=== PATIENT | male | born 1970 | race Caucasian/White ===

== ENCOUNTER → 2016-09-05 | Outpatient (REF) | payer OTHER ==
[~2016-09-05] MED LIST: FLEXERIL PO; IBUP600T OR; NOVOLOG100 MG/ML SC; PAIN325T OR
[2016-09-05 13:08] LABS: ANION GAP 7 MEQ/L (8-16); BLOOD UREA NITROGEN 21 MG/DL (7-18); CALCIUM LEVEL 8.9 MG/DL (8.5-10.1); CARBON DIOXIDE LEVEL 28 MEQ/L (21-32); CHLORIDE LEVEL 107 MEQ/L (98-107); CREATININE FOR GFR 0.84 MG/DL (0.70-1.30); GLOMERULAR FILTRATION RATE > 60.0 (>60); GLUCOSE, FASTING 72 MG/DL (70-105); POTASSIUM SERUM 3.9 MEQ/L (3.5-5.1); SODIUM LEVEL 142 MEQ/L (136-145)
[2016-09-05 13:14] LABS: MEAN CORPUSCULAR HEMOGLOBIN 32.4 pg (27.0-33.0); MEAN CORPUSCULAR VOLUME 86.8 fl (80.0-96.0); RED CELL DISTRIBUTION WIDTH 12.5 % (11.5-14.5); WHITE BLOOD COUNT 8.6 K/mm3 (4.0-10.0)
[2016-09-05 13:22] LABS: MEAN CORPUSCULAR HGB CONC 37.1 g/dl (32.0-36.5)
== END ==
LOC: M LABDRAW1 12:12
PROVIDERS: ATTEND Nurse Practitioner
DX: Z01.812 Encounter for preprocedural laboratory examination (principal); I49.3 Ventricular premature depolarization

== ENCOUNTER → 2017-10-16 | Outpatient (REF) | payer OTHER ==
[2017-10-16 16:30] LABS: PROSTATIC SPECIFIC AG MONITOR 0.78 NG/ML (< 4.0)
[2017-10-16 17:01] LABS: TESTOSTERONE 408 NG/DL (241-827)
== END ==
LOC: M LABDRAW1 12:03
DX: F52.21 Male erectile disorder (principal)

== ENCOUNTER → 2018-01-02 | Outpatient (REF) | payer OTHER ==
[2018-01-02 12:43] LABS: BASO # 0.1 10^3/uL (0.0-0.2); BASO % 0.9 % (0.0-1.0); EOS # 0.2 10^3/uL (0.0-0.50); EOS % 2.7 % (0.0-3.0); HEMATOCRIT 39.7 % (42.0-52.0); HEMOGLOBIN 14.6 g/dl (13.5-17.5); IMMATURE GRANULOCYTE % 0.2 % (0-3.0); LYMPH # 1.5 10^3/uL (1.5-4.5); LYMPH % 22.8 % (24.0-44.0); MEAN CORPUSCULAR HEMOGLOBIN 31.5 pg (27.0-33.0); MEAN CORPUSCULAR VOLUME 85.6 fl (80.0-96.0); MONO # 0.4 10^3/uL (0.0-0.8); MONO % 6.9 % (0.0-5.0); NEUTROPHILS # 4.2 10^3/uL (1.8-7.7); NEUTROPHILS % 66.5 % (36.0-66.0); PLATELET COUNT, AUTOMATED 263 10^3/uL (150-450); RED BLOOD COUNT 4.64 10^6/uL (4.30-6.10); RED CELL DISTRIBUTION WIDTH 11.7 % (11.5-14.5); WHITE BLOOD COUNT 6.4 10^3/uL (4.0-10.0)
[2018-01-02 12:51] LABS: MEAN CORPUSCULAR HGB CONC 36.4 g/dl (32.0-36.5)
[2018-01-02 13:02] LABS: C REACTIVE PROTEIN QUANTITATIV < 0.30 MG/DL (0.00-0.30)
[2018-01-02 13:02] LABS: RHEUMATOID FACTOR QUANT < 10.0 IU/ML (<15.0)
[2018-01-02 13:33] LABS: ERYTHROCYTE SEDIMENTATION RATE 4 mm/hr (0-15)
[2018-01-04 00:09] LABS: ANTINUCLEAR ANTIBODIES DIRECT Negative (Negative); Lyme Disease IgG/IgM Antibodie <0.91 ISR (0.00-0.90); Lyme Disease IgM Ab Quantitati <0.80 index (0.00-0.79)
== END ==
LOC: M LABDRAW1 12:07
DX: M25.561 Pain in right knee (principal)

== ENCOUNTER → 2018-05-24 | Outpatient (CLI) | payer OTHER ==
[2018-05-24 18:07] LABS: BLOOD UREA NITROGEN 23 MG/DL (7-18); CALCIUM LEVEL 8.5 MG/DL (8.5-10.1); CARBON DIOXIDE LEVEL 25 MEQ/L (21-32); CHLORIDE LEVEL 107 MEQ/L (98-107); CREATININE FOR GFR 1.01 MG/DL (0.70-1.30); GLOMERULAR FILTRATION RATE > 60.0 (>56); GLUCOSE, FASTING 202 MG/DL (70-100); POTASSIUM SERUM 4.3 MEQ/L (3.5-5.1); SODIUM LEVEL 139 MEQ/L (136-145)
== END ==
LOC: M LAB 16:53
PROVIDERS: ATTEND Orthopaedic Surgery
DX: Z01.818 Encounter for other preprocedural examination (principal); I10 Essential (primary) hypertension; Z79.899 Other long term (current) drug therapy

== ENCOUNTER → 2020-03-05 | Outpatient (REF) | payer OTHER ==
[2020-03-05 18:39] LABS: MALB URINE SIEMENS 17.7 MG/L; MAU/CREAT RATIO 16.3 MCG/MG (0.0-30.0)
== END ==
LOC: M LAB REF 17:00
PROVIDERS: ATTEND Internal Medicine Endocrinology, Diabetes & Metabolism
DX: E10.65 Type 1 diabetes mellitus with hyperglycemia (principal)

== ENCOUNTER → 2020-12-29 | Outpatient (REF) | payer OTHER ==
[2020-12-29 19:09] LABS: MALB URINE SIEMENS 37.8 MG/L; MAU/CREAT RATIO 28.6 MCG/MG (0.0-30.0)
== END ==
LOC: M LAB REF 16:52
PROVIDERS: ATTEND Internal Medicine Endocrinology, Diabetes & Metabolism
DX: E10.65 Type 1 diabetes mellitus with hyperglycemia (principal)

== ENCOUNTER 2023-03-06 08:13 | Emergency (ER) | payer OTHER ==
[~2023-03-06] VITALS: Ht 182.9 cm; Wt 106.6 kg
[2023-03-06] MEDS ORDERED: INSUHUMDS (09:01)
[2023-03-06] MEDS ORDERED: CARV25TA (09:01)
[2023-03-06 09:21] LABS: BASO % 0.3 % (0.0-1.0); EOS # 0.1 10^3/uL (0.0-0.5); HEMATOCRIT 38.4 % (42.0-52.0); HEMOGLOBIN 14.4 g/dl (13.5-17.5); LYMPH % 10.5 % (24.0-44.0); MEAN CORPUSCULAR HEMOGLOBIN 31.9 pg (27.0-33.0); MONO # 0.5 10^3/uL (0.0-0.8); MONO % 5.5 % (2.0-8.0); NEUTROPHILS # 7.9 10^3/uL (1.5-8.5); NEUTROPHILS % 82.4 % (36.0-66.0); PLATELET COUNT, AUTOMATED 211 10^3/uL (150-450); RED BLOOD COUNT 4.52 10^6/uL (4.30-6.10); WHITE BLOOD COUNT 9.5 10^3/uL (4.0-10.0)
[2023-03-06 09:22] LABS: INR 0.98; PARTIAL THROMBOPLASTIN TIME 23.5 SECONDS (24.8-34.2); PROTHROMBIN TIME 12.7 SECONDS (12.5-14.5)
[2023-03-06 09:23] LABS: MEAN CORPUSCULAR HGB CONC 37.5 g/dl (32.0-36.5)
[2023-03-06 09:36] LABS: RSV AMPLIFICATION NEGATIVE (NEGATIVE)
[2023-03-06] MEDS ORDERED: METOCLOPRAMIDE INJ 10MG/2ML VIAL IV ONE (09:50)
[2023-03-06] MEDS ORDERED: KETOROLAC 30 MG/ML 1ML VIAL IV ONE (09:50)
[2023-03-06] MEDS ORDERED: ISOVUE-370 76% 100ML VIAL As Ordered ONE (09:57)
[2023-03-06 12:02] LABS: AMPHETAMINES LEVEL URINE NEGATIVE (NEGATIVE); BARBITURATES URINE NEGATIVE (NEGATIVE); BENZODIAZEPINES URINE NEGATIVE (NEGATIVE); CANNABINOIDS URINE NEGATIVE (NEGATIVE); COCAINE METABOLITE URINE NEGATIVE (NEGATIVE); METHADONE URINE NEGATIVE (NEGATIVE); OPIATES URINE NEGATIVE (NEGATIVE); PHENCYCLIDINE URINE NEGATIVE (NEGATIVE)
[2023-03-06] MEDS ORDERED: IMIT50TA PO (14:07)
[2023-03-06 14:34] VITALS: BP 149/79; TEMP 98.4; O2SAT 96
== END 2023-03-06 14:35 | disposition home or self-care (01) ==
LOC: M ED 08:13 → EDBD 08:13 → M ED 14:35
DX: G43.909 Migraine, unspecified, not intractable, without status migrainosus (principal); R00.1 Bradycardia, unspecified; E11.9 Type 2 diabetes mellitus without complications; I10 Essential (primary) hypertension; F10.10 Alcohol abuse, uncomplicated; Z79.84 Long term (current) use of oral hypoglycemic drugs; Z79.899 Other long term (current) drug therapy
CPT/HCPCS: 70450; 70496; 70498; 70551; 71045; 80047; 80307; 85025; 85610; 85730; 86850; 86900; 86901; 87631; 93005; 93041; 94760; 96374; 99285; J1885; J2765; Q9967

== ENCOUNTER 2023-11-27 10:20 | Inpatient (IN) | payer OTHER ==
[2023-11-27] VITALS (8 sets, daily range): BP systolic 116–124; BP diastolic 57–61; TEMP 97.1–98.7; O2SAT 95–98
[~2023-11-27] VITALS: Ht 188 cm; Wt 108.1 kg
[~2023-11-27 10:20] MED LIST changes: +CARV25TA PO; +IMIT50TA PO; +INSUHUMDS INJ
[2023-11-27] MEDS ORDERED: ISOVUE-370 76% 100ML VIAL As Ordered ONE (10:27)
[2023-11-27 10:39] LABS: BASO % 0.3 % (0.0-1.0); EOS # 0.1 10^3/uL (0.0-0.5); HEMATOCRIT 40.3 % (42.0-52.0); HEMOGLOBIN 14.5 g/dl (13.5-17.5); LYMPH # 0.8 10^3/uL (1.5-5.0); LYMPH % 7.1 % (24.0-44.0); MEAN CORPUSCULAR HEMOGLOBIN 31.4 pg (27.0-33.0); MEAN CORPUSCULAR VOLUME 87.2 fl (80.0-96.0); MONO # 0.7 10^3/uL (0.0-0.8); MONO % 6.2 % (2.0-8.0); NEUTROPHILS # 9.2 10^3/uL (1.5-8.5); NEUTROPHILS % 84.4 % (36.0-66.0); PLATELET COUNT, AUTOMATED 224 10^3/uL (150-450); RED BLOOD COUNT 4.62 10^6/uL (4.30-6.10)
[2023-11-27 10:51] LABS: INR 1.04; PARTIAL THROMBOPLASTIN TIME 22.6 SECONDS (24.8-34.2); PROTHROMBIN TIME 13.3 SECONDS (12.5-14.5)
[2023-11-27 11:02] LABS: CK-MB VALUE MASS 3.9 NG/ML (<3.6)
[2023-11-27 11:03] LABS: MB/CK RELATIVE INDEX 1.87 (< OR =4)
[2023-11-27 11:04] LABS: ALBUMIN 3.6 G/DL (3.2-5.2); BILIRUBIN,DIRECT 0.7 MG/DL (<0.4); BILIRUBIN,TOTAL 2.6 MG/DL (0.3-1.2); TOTAL PROTEIN 6.3 G/DL (5.7-8.2)
[2023-11-27 11:18] LABS: ABG BASE EXCESS -0.5 (-2.0-2.0); ABG HCO3 23.2 MMOL/L (22.0-26.0); ABG O2 SATURATION 95.6 % (95.0-99.0); ABG PARTIAL PRESSURE CO2 35.3 mmHg (35.0-45.0); ABG PARTIAL PRESSURE O2 73.7 mmHg (75.0-100.0); ABG STANDARD HCO3 24.1 MMOL/L. (22.0-26.0); ABG TOTAL CO2 24.3 MMOL/L (22.0-29.0); ABG pH (ARTERIAL) 7.436 UNITS (7.350-7.450)
[2023-11-27] MEDS: MORPHINE 4 MG/ML 1ML VIAL IV PRN (11:45)
[2023-11-27] MEDS ORDERED: IPRATROPIUM 0.5MG/ALBUTEROL 2.5MG INH SOL UD 3ML (DUONEB) NEB PRN (12:20)
[2023-11-27] MEDS ORDERED: MORPHINE 4 MG/ML 1ML VIAL IV PRN (12:20)
[2023-11-27] MEDS ORDERED: SUMA50TA2 PO (12:21)
[2023-11-27] MEDS ORDERED: MAGN400T35 PO (12:22)
[2023-11-27] MEDS ORDERED: HOME MED LIST COMPLETE! XX SCH (12:25)
[2023-11-27] MEDS: ONDANSETRON 4MG 2ML VIAL IV PRN (12:42)
[2023-11-27] MEDS: PANTOPRAZOLE 40MG VIAL IV SCH (12:42)
[2023-11-27] MEDS: KETOROLAC 30 MG/ML 1ML VIAL IV SCH (12:42)
[2023-11-27] MEDS ORDERED: GLUCAGON INJ 1MG VIAL SC PRN (13:20)
[2023-11-27] MEDS ORDERED: SUMAtriptan SUCCINATE 25 MG TAB PO PRN (13:20)
[2023-11-27] MEDS ORDERED: DEXTROSE 50% 50ML SYRINGE IV PRN (13:20)
[2023-11-27] MEDS ORDERED: GLUCOSE 4 GM CHEW PO PRN (13:20)
[2023-11-27] MEDS: IPRATROPIUM 0.5MG/ALBUTEROL 2.5MG INH SOL UD 3ML (DUONEB) NEB SCH (14:13)
[2023-11-27] MEDS: DOCUSATE SODIUM 100MG CAPSULE PO SCH (14:43)
[2023-11-27] MEDS: MORPHINE 2 MG/ML 1ML VIAL IV PRN (15:05)
[2023-11-27] MEDS: D5W/LR 1,000 ML IV SCH (16:11)
[2023-11-27] MEDS: LR 1,000 ML IV SCH (17:02)
[2023-11-27] MEDS: LEVEMIR (INSULIN DETEMIR) 1 UNITS/0.01ML SC SCH (17:47)
[2023-11-27] MEDS: INSULIN LISPRO (NovoLOG) PER UNIT SC SCH ×2 (17:47→21:14)
[2023-11-27 18:33] LABS: APPEARANCE, URINE CLEAR (CLEAR); BACTERIA, URINE AUTO NEGATIVE (NEGATIVE); BILIRUBIN, URINE AUTO NEGATIVE (NEGATIVE); BLOOD, URINE BLOOD NEGATIVE (NEGATIVE); COLOR, URINE YELLOW (YELLOW); GLUCOSE, URINE (UA) AUTO 3+ mg/dL (NEGATIVE); KETONE, URINE AUTO NEGATIVE (NEGATIVE); LEUKOCYTE ESTERASE, URINE AUTO NEGATIVE (NEGATIVE); MUCUS, URINE SMALL (NEGATIVE); NITRITE, URINE AUTO NEGATIVE (NEGATIVE); PROTEIN, URINE AUTO 1+ mg/dL (NEGATIVE); RBC, URINE AUTO 2 /HPF (0-3); SPECIFIC GRAVITY URINE AUTO 1.039 (1.002-1.035); SQUAMOUS EPITHELIAL CELL UR AU 0 /HPF (0-6); UROBILINOGEN, URINE AUTO 0.2 mg/dL (0.0-2.0); WBC, URINE AUTO 1 /HPF (0-3)
[2023-11-27 18:44] LABS: AMPHETAMINES LEVEL URINE NEGATIVE (NEGATIVE)
[2023-11-27 18:45] LABS: BARBITURATES URINE NEGATIVE (NEGATIVE); BENZODIAZEPINES URINE NEGATIVE (NEGATIVE); CANNABINOIDS URINE NEGATIVE (NEGATIVE); COCAINE METABOLITE URINE NEGATIVE (NEGATIVE); METHADONE URINE NEGATIVE (NEGATIVE); PHENCYCLIDINE URINE NEGATIVE (NEGATIVE)
[2023-11-27 18:50] LABS: OPIATES URINE POSITIVE (NEGATIVE)
[2023-11-27] MEDS: CARVedilol 12.5 MG TAB PO SCH (20:16)
[2023-11-27] MEDS: MAGNESIUM OXIDE 400MG TAB (MAG-OX) PO SCH (20:17)
[2023-11-28] VITALS (18 sets, daily range): BP systolic 100–136; BP diastolic 56–74; TEMP 97.7–99.4; O2SAT 91–94
[2023-11-28 06:30] LABS: MEAN CORPUSCULAR HEMOGLOBIN 31.2 pg (27.0-33.0); MEAN CORPUSCULAR HGB CONC 35.2 g/dl (32.0-36.5); MEAN CORPUSCULAR VOLUME 88.5 fl (80.0-96.0); PLATELET COUNT, AUTOMATED 172 10^3/uL (150-450); RED BLOOD COUNT 3.75 10^6/uL (4.30-6.10); WHITE BLOOD COUNT 6.7 10^3/uL (4.0-10.0)
[2023-11-28 06:53] LABS: HEMOGLOBIN 11.7 g/dl (13.5-17.5)
[2023-11-28 06:54] LABS: HEMATOCRIT 33.2 % (42.0-52.0)
[2023-11-28 07:20] LABS: ALBUMIN 3.1 G/DL (3.2-5.2); ALKALINE PHOSPHATASE 134 U/L (46-116); ALT/SGPT 58 U/L (7.0-40); AST/SGOT 38 U/L (<34); BILIRUBIN,TOTAL 3.6 MG/DL (0.3-1.2); BLOOD UREA NITROGEN 34 MG/DL (9-23); CARBON DIOXIDE LEVEL 26 MMOL/L (20-31); CHLORIDE LEVEL 105 MMOL/L (98-107); CREATININE FOR GFR 1.01 MG/DL (0.70-1.30); GLOMERULAR FILTRATION RATE > 60.0 (>56); GLUCOSE, FASTING 350 MG/DL (60-100); POTASSIUM SERUM 4.5 MMOL/L (3.5-5.1); SODIUM LEVEL 136 MMOL/L (136-145); TOTAL PROTEIN 5.4 G/DL (5.7-8.2)
[2023-11-28] MEDS: MORPHINE 4 MG/ML 1ML VIAL IV PRN (08:05)
[2023-11-28] MEDS: INSULIN LISPRO (NovoLOG) PER UNIT SC ONE (12:48)
[2023-11-28] MEDS ORDERED: NALBUPHINE HCL 10 MG/ML 1ML AMP IV PRN (14:45)
[2023-11-28] MEDS ORDERED: EPIDURAL/PCA KEYS XX PRN ×2 (14:45→14:55)
[2023-11-28] MEDS ORDERED: METOCLOPRAMIDE INJ 10MG/2ML VIAL IV PRN (14:45)
[2023-11-28] MEDS ORDERED: NALOXONE INJ 0.4MG/1ML VIAL IV PRN (14:45)
[2023-11-28] MEDS ORDERED: ONDANSETRON 4MG 2ML VIAL IV PRN (14:45)
[2023-11-28] MEDS ORDERED: diphenhydrAMINE 50MG/ML VIAL IV PRN (14:45)
[2023-11-28] MEDS ORDERED: fentaNYL CITRATE 500 MCG, BUPIVACAINE HCL 0.5% 31.25 ML in NS 208.75 ML EPIDURAL SCH (14:55)
[2023-11-28] MEDS ORDERED: fentaNYL 100 MCG/2 ML INJECTION As Ordered ONE (14:57)
[2023-11-28] MEDS: fentaNYL 100 MCG/2 ML INJECTION IV PRN (15:00)
[2023-11-28] MEDS: BUPIVACAINE HCL 0.5% EPIDURAL SCH (16:49)
[2023-11-28] MEDS: NS EPIDURAL SCH (16:49)
[2023-11-28] MEDS: FENTANYL CITRATE EPIDURAL SCH (16:49)
[2023-11-29] VITALS (26 sets, daily range): BP systolic 108–139; BP diastolic 53–67; TEMP 97–99; O2SAT 89–96
[2023-11-29 06:01] LABS: HEMATOCRIT 30.1 % (42.0-52.0); HEMOGLOBIN 10.8 g/dl (13.5-17.5); MEAN CORPUSCULAR HEMOGLOBIN 31.4 pg (27.0-33.0); MEAN CORPUSCULAR HGB CONC 35.9 g/dl (32.0-36.5); MEAN CORPUSCULAR VOLUME 87.5 fl (80.0-96.0); PLATELET COUNT, AUTOMATED 156 10^3/uL (150-450); RED BLOOD COUNT 3.44 10^6/uL (4.30-6.10); WHITE BLOOD COUNT 7.3 10^3/uL (4.0-10.0)
[2023-11-29 06:34] LABS: ALBUMIN 2.8 G/DL (3.2-5.2); ALKALINE PHOSPHATASE 114 U/L (46-116); ALT/SGPT 42 U/L (7.0-40); AST/SGOT 26 U/L (<34); BILIRUBIN,TOTAL 3.3 MG/DL (0.3-1.2); BLOOD UREA NITROGEN 47 MG/DL (9-23); CALCIUM LEVEL 8.8 MG/DL (8.5-10.1); CARBON DIOXIDE LEVEL 28 MMOL/L (20-31); CHLORIDE LEVEL 104 MMOL/L (98-107); CREATININE FOR GFR 1.16 MG/DL (0.70-1.30); GLOMERULAR FILTRATION RATE > 60.0 (>56); GLUCOSE, FASTING 304 MG/DL (60-100); POTASSIUM SERUM 4.8 MMOL/L (3.5-5.1); SODIUM LEVEL 135 MMOL/L (136-145); TOTAL PROTEIN 5.3 G/DL (5.7-8.2)
[2023-11-29] MEDS: LEVEMIR (INSULIN DETEMIR) 1 UNITS/0.01ML SC SCH (08:30)
[2023-11-29] MEDS ORDERED: PERMETHRIN 5% CREAM 60 GM TOP ONE (18:00)
[2023-11-30] VITALS (23 sets, daily range): BP systolic 129–166; BP diastolic 68–76; TEMP 97.1–98.3; O2SAT 88–95
[2023-11-30] MEDS ORDERED: PERMETHRIN 5% CREAM 60 GM TOP SCH
[2023-11-30 07:43] LABS: ALBUMIN 2.8 G/DL (3.2-5.2); ALKALINE PHOSPHATASE 116 U/L (46-116); ALT/SGPT 37 U/L (7.0-40); AST/SGOT 21 U/L (<34); BILIRUBIN,TOTAL 2.8 MG/DL (0.3-1.2); BLOOD UREA NITROGEN 41 MG/DL (9-23); CALCIUM LEVEL 8.7 MG/DL (8.5-10.1); CARBON DIOXIDE LEVEL 29 MMOL/L (20-31); CHLORIDE LEVEL 103 MMOL/L (98-107); CREATININE FOR GFR 0.88 MG/DL (0.70-1.30); GLOMERULAR FILTRATION RATE > 60.0 (>56); GLUCOSE, FASTING 315 MG/DL (60-100); SODIUM LEVEL 135 MMOL/L (136-145); TOTAL PROTEIN 5.5 G/DL (5.7-8.2)
[2023-11-30 07:48] LABS: MEAN CORPUSCULAR HEMOGLOBIN 31.9 pg (27.0-33.0); PLATELET COUNT, AUTOMATED 160 10^3/uL (150-450); RED BLOOD COUNT 3.45 10^6/uL (4.30-6.10); WHITE BLOOD COUNT 6.8 10^3/uL (4.0-10.0)
[2023-11-30 07:53] LABS: MEAN CORPUSCULAR HGB CONC 36.7 g/dl (32.0-36.5)
[2023-11-30] MEDS: LEVEMIR (INSULIN DETEMIR) 1 UNITS/0.01ML SC SCH (09:50)
[2023-12-01] VITALS (26 sets, daily range): BP systolic 108–156; BP diastolic 66–76; TEMP 97.3–98.6; O2SAT 85–99
[2023-12-01] MEDS: PERMETHRIN 5% CREAM 60 GM TOP ONE (00:45)
[2023-12-01 06:53] LABS: HEMATOCRIT 30.2 % (42.0-52.0); HEMOGLOBIN 10.9 g/dl (13.5-17.5); MEAN CORPUSCULAR HEMOGLOBIN 31.4 pg (27.0-33.0); MEAN CORPUSCULAR HGB CONC 36.1 g/dl (32.0-36.5); PLATELET COUNT, AUTOMATED 178 10^3/uL (150-450); RED BLOOD COUNT 3.47 10^6/uL (4.30-6.10); WHITE BLOOD COUNT 7.1 10^3/uL (4.0-10.0)
[2023-12-01 07:21] LABS: ALBUMIN 2.8 G/DL (3.2-5.2); ALKALINE PHOSPHATASE 108 U/L (46-116); ALT/SGPT 32 U/L (7.0-40); AST/SGOT 20 U/L (<34); BILIRUBIN,TOTAL 2.8 MG/DL (0.3-1.2); BLOOD UREA NITROGEN 41 MG/DL (9-23); CALCIUM LEVEL 8.7 MG/DL (8.5-10.1); CARBON DIOXIDE LEVEL 31 MMOL/L (20-31); CHLORIDE LEVEL 103 MMOL/L (98-107); CREATININE FOR GFR 0.81 MG/DL (0.70-1.30); GLOMERULAR FILTRATION RATE > 60.0 (>56); GLUCOSE, FASTING 191 MG/DL (60-100); POTASSIUM SERUM 4.8 MMOL/L (3.5-5.1); SODIUM LEVEL 137 MMOL/L (136-145); TOTAL PROTEIN 5.5 G/DL (5.7-8.2)
[2023-12-02] VITALS (31 sets, daily range): BP systolic 140–172; BP diastolic 63–84; TEMP 96.7–97.4; O2SAT 87–98
[2023-12-02 06:08] LABS: HEMATOCRIT 29.2 % (42.0-52.0); HEMOGLOBIN 10.6 g/dl (13.5-17.5); MEAN CORPUSCULAR HEMOGLOBIN 31.8 pg (27.0-33.0); MEAN CORPUSCULAR HGB CONC 36.3 g/dl (32.0-36.5); MEAN CORPUSCULAR VOLUME 87.7 fl (80.0-96.0); PLATELET COUNT, AUTOMATED 177 10^3/uL (150-450); RED BLOOD COUNT 3.33 10^6/uL (4.30-6.10); WHITE BLOOD COUNT 5.2 10^3/uL (4.0-10.0)
[2023-12-02 06:21] LABS: ALBUMIN 2.6 G/DL (3.2-5.2); ALKALINE PHOSPHATASE 112 U/L (46-116); ALT/SGPT 27 U/L (7.0-40); AST/SGOT 16 U/L (<34); BILIRUBIN,TOTAL 2.3 MG/DL (0.3-1.2); BLOOD UREA NITROGEN 40 MG/DL (9-23); CALCIUM LEVEL 8.6 MG/DL (8.5-10.1); CARBON DIOXIDE LEVEL 32 MMOL/L (20-31); CHLORIDE LEVEL 105 MMOL/L (98-107); CREATININE FOR GFR 0.87 MG/DL (0.70-1.30); GLOMERULAR FILTRATION RATE > 60.0 (>56); GLUCOSE, FASTING 257 MG/DL (60-100); SODIUM LEVEL 138 MMOL/L (136-145); TOTAL PROTEIN 5.3 G/DL (5.7-8.2)
[2023-12-02] MEDS ORDERED: LEVEMIR (INSULIN DETEMIR) 1 UNITS/0.01ML SC ONE (11:15)
[2023-12-02] MEDS ORDERED: INSULIN LISPRO (NovoLOG) PER UNIT XX PRN (13:30)
[2023-12-02] MEDS: MIRALAX *UNIT DOSE* 17GM PACKET PO SCH (14:55)
[2023-12-02] MEDS: SENNA 8.6 MG TAB (SENOKOT) PO ONE (14:56)
[2023-12-02] MEDS: SENNA 8.6 MG TAB (SENOKOT) PO PRN (23:52)
[2023-12-03] VITALS (31 sets, daily range): BP systolic 131–153; BP diastolic 60–70; TEMP 96.9–98; O2SAT 89–97
[2023-12-03] MEDS: RAMELTEON 8 MG TAB (ROZEREM) PO ONE (00:50)
[2023-12-03] MEDS: BENZONATATE 100MG CAPSULE PO ONE (00:50)
[2023-12-03 07:47] LABS: HEMATOCRIT 31.5 % (42.0-52.0); HEMOGLOBIN 11.1 g/dl (13.5-17.5); MEAN CORPUSCULAR HEMOGLOBIN 31.3 pg (27.0-33.0); MEAN CORPUSCULAR HGB CONC 35.2 g/dl (32.0-36.5); MEAN CORPUSCULAR VOLUME 88.7 fl (80.0-96.0); PLATELET COUNT, AUTOMATED 198 10^3/uL (150-450); RED BLOOD COUNT 3.55 10^6/uL (4.30-6.10); WHITE BLOOD COUNT 6.9 10^3/uL (4.0-10.0)
[2023-12-03 08:19] LABS: ALBUMIN 2.8 G/DL (3.2-5.2); ALKALINE PHOSPHATASE 112 U/L (46-116); ALT/SGPT 25 U/L (7.0-40); AST/SGOT 16 U/L (<34); BILIRUBIN,TOTAL 2.3 MG/DL (0.3-1.2); BLOOD UREA NITROGEN 32 MG/DL (9-23); CALCIUM LEVEL 8.6 MG/DL (8.5-10.1); CARBON DIOXIDE LEVEL 31 MMOL/L (20-31); CHLORIDE LEVEL 102 MMOL/L (98-107); CREATININE FOR GFR 0.78 MG/DL (0.70-1.30); GLOMERULAR FILTRATION RATE > 60.0 (>56); GLUCOSE, FASTING 118 MG/DL (60-100); POTASSIUM SERUM 4.6 MMOL/L (3.5-5.1); SODIUM LEVEL 137 MMOL/L (136-145); TOTAL PROTEIN 5.5 G/DL (5.7-8.2)
[2023-12-03] MEDS ORDERED: LEVEMIR (INSULIN DETEMIR) 1 UNITS/0.01ML SC SCH (09:00)
[2023-12-03] MEDS ORDERED: EPIDURAL/PCA KEYS XX PRN (09:45)
[2023-12-03] MEDS: BUPIVACAINE HCL 0.5% 62.5 ML in NS 187.5 ML EPIDURAL SCH (12:06)
[2023-12-03] MEDS: IBUPROFEN 600MG TAB PO SCH (13:16)
[2023-12-03] MEDS: PERCOCET 5MG/325MG TAB PO PRN (15:05)
[2023-12-04] VITALS (14 sets, daily range): BP systolic 14–168; BP diastolic 69–78; TEMP 97.4–98.6; O2SAT 87–99
[2023-12-04 08:03] LABS: HEMATOCRIT 32.1 % (42.0-52.0); HEMOGLOBIN 11.5 g/dl (13.5-17.5); MEAN CORPUSCULAR HEMOGLOBIN 31.3 pg (27.0-33.0); MEAN CORPUSCULAR HGB CONC 35.8 g/dl (32.0-36.5); MEAN CORPUSCULAR VOLUME 87.5 fl (80.0-96.0); PLATELET COUNT, AUTOMATED 218 10^3/uL (150-450); RED BLOOD COUNT 3.67 10^6/uL (4.30-6.10); WHITE BLOOD COUNT 6.3 10^3/uL (4.0-10.0)
[2023-12-04] MEDS: PERCOCET 5MG/325MG TAB PO PRN (08:24)
[2023-12-04 08:34] LABS: ALBUMIN 2.7 G/DL (3.2-5.2); ALKALINE PHOSPHATASE 125 U/L (46-116); ALT/SGPT 26 U/L (7.0-40); AST/SGOT 17 U/L (<34); BILIRUBIN,TOTAL 2.5 MG/DL (0.3-1.2); BLOOD UREA NITROGEN 23 MG/DL (9-23); CALCIUM LEVEL 8.7 MG/DL (8.5-10.1); CARBON DIOXIDE LEVEL 30 MMOL/L (20-31); CHLORIDE LEVEL 101 MMOL/L (98-107); CREATININE FOR GFR 0.71 MG/DL (0.70-1.30); GLOMERULAR FILTRATION RATE > 60.0 (>56); GLUCOSE, FASTING 198 MG/DL (60-100); POTASSIUM SERUM 4.6 MMOL/L (3.5-5.1); SODIUM LEVEL 137 MMOL/L (136-145); TOTAL PROTEIN 5.5 G/DL (5.7-8.2)
[2023-12-05 05:13] LABS: HEMATOCRIT 30.5 % (42.0-52.0); HEMOGLOBIN 11.1 g/dl (13.5-17.5); MEAN CORPUSCULAR HEMOGLOBIN 31.4 pg (27.0-33.0); MEAN CORPUSCULAR HGB CONC 36.4 g/dl (32.0-36.5); MEAN CORPUSCULAR VOLUME 86.2 fl (80.0-96.0); PLATELET COUNT, AUTOMATED 228 10^3/uL (150-450); RED BLOOD COUNT 3.54 10^6/uL (4.30-6.10); WHITE BLOOD COUNT 5.8 10^3/uL (4.0-10.0)
[2023-12-05 05:34] LABS: ALBUMIN 2.7 G/DL (3.2-5.2); ALKALINE PHOSPHATASE 138 U/L (46-116); ALT/SGPT 26 U/L (7.0-40); AST/SGOT 21 U/L (<34); BILIRUBIN,TOTAL 2.2 MG/DL (0.3-1.2); BLOOD UREA NITROGEN 26 MG/DL (9-23); CALCIUM LEVEL 8.5 MG/DL (8.5-10.1); CARBON DIOXIDE LEVEL 31 MMOL/L (20-31); CHLORIDE LEVEL 104 MMOL/L (98-107); CREATININE FOR GFR 0.73 MG/DL (0.70-1.30); GLOMERULAR FILTRATION RATE > 60.0 (>56); GLUCOSE, FASTING 201 MG/DL (60-100); POTASSIUM SERUM 4.3 MMOL/L (3.5-5.1); SODIUM LEVEL 138 MMOL/L (136-145); TOTAL PROTEIN 5.5 G/DL (5.7-8.2)
[2023-12-05 06:40] VITALS: BP 151/71; TEMP 99.1; O2SAT 98
[2023-12-05 07:46] VITALS: BP 149/76; TEMP 97.5; O2SAT 99
[2023-12-05] MEDS: oxyCODONE 20MG CR TAB PO SCH (08:35)
[2023-12-05] MEDS ORDERED: MOM 30ML SUSPENSION UDC PO PRN (10:10)
[2023-12-05] MEDS: PERCOCET 5MG/325MG TAB PO PRN (10:35)
[2023-12-05 11:50] VITALS: BP 146/70; TEMP 97.6; O2SAT 96
[2023-12-05] MEDS: TETRAHYDROZOLINE OPHTH 0.05% 15 ML BTL OS SCH (17:46)
[2023-12-05] MEDS: FUROSEMIDE 40MG/4ML VIAL IV ONE (17:47)
[2023-12-05 19:42] VITALS: BP 146/67; TEMP 97.5; O2SAT 95
[2023-12-05] MEDS: SENNA 8.6 MG TAB (SENOKOT) PO SCH (20:32)
[2023-12-05] MEDS ORDERED: ERYTHROMYCIN OPHTH OINT OS SCH (21:00)
[2023-12-05] MEDS: POLYTRIM OPTH DROPS 10ML OS SCH (23:23)
[2023-12-06] VITALS (8 sets, daily range): BP systolic 122–144; BP diastolic 61–69; TEMP 97.2–97.9; O2SAT 91–95
[2023-12-06 04:20] LABS: HEMOGLOBIN 11.1 g/dl (13.5-17.5); MEAN CORPUSCULAR HEMOGLOBIN 31.3 pg (27.0-33.0); MEAN CORPUSCULAR HGB CONC 35.8 g/dl (32.0-36.5); MEAN CORPUSCULAR VOLUME 87.3 fl (80.0-96.0); PLATELET COUNT, AUTOMATED 241 10^3/uL (150-450); RED BLOOD COUNT 3.55 10^6/uL (4.30-6.10); WHITE BLOOD COUNT 7.4 10^3/uL (4.0-10.0)
[2023-12-06 04:40] LABS: ALBUMIN 2.9 G/DL (3.2-5.2); ALKALINE PHOSPHATASE 197 U/L (46-116); ALT/SGPT 49 U/L (7.0-40); AST/SGOT 35 U/L (<34); BILIRUBIN,TOTAL 1.9 MG/DL (0.3-1.2); BLOOD UREA NITROGEN 29 MG/DL (9-23); CALCIUM LEVEL 8.6 MG/DL (8.5-10.1); CARBON DIOXIDE LEVEL 32 MMOL/L (20-31); CHLORIDE LEVEL 102 MMOL/L (98-107); CREATININE FOR GFR 0.93 MG/DL (0.70-1.30); GLOMERULAR FILTRATION RATE > 60.0 (>56); GLUCOSE, FASTING 131 MG/DL (60-100); POTASSIUM SERUM 4.1 MMOL/L (3.5-5.1); SODIUM LEVEL 136 MMOL/L (136-145); TOTAL PROTEIN 5.6 G/DL (5.7-8.2)
[2023-12-06] MEDS: LACTULOSE 20GM/30ML SYRUP UDC PO SCH ×2 (09:29→14:58)
[2023-12-06] MEDS: ENOXAPARIN 40MG/0.4ML SYRINGE (J1650 PER 10MG) SC SCH (09:32)
[2023-12-06] MEDS: BISACODYL 10MG SUPP PR SCH (11:05)
[2023-12-06 13:56] LABS: PROCALCITONIN 0.11 ng/ml
[2023-12-06] MEDS: SIMETHICONE 80MG CHEW TAB PO SCH (17:45)
[2023-12-06 20:31] LABS: ALBUMIN 3.2 G/DL (3.2-5.2); ALKALINE PHOSPHATASE 327 U/L (46-116); ALT/SGPT 95 U/L (7.0-40); AST/SGOT 98 U/L (<34); BILIRUBIN,TOTAL 2.9 MG/DL (0.3-1.2); BLOOD UREA NITROGEN 32 MG/DL (9-23); CALCIUM LEVEL 9.8 MG/DL (8.5-10.1); CARBON DIOXIDE LEVEL 33 MMOL/L (20-31); CHLORIDE LEVEL 100 MMOL/L (98-107); CREATININE FOR GFR 0.83 MG/DL (0.70-1.30); GLOMERULAR FILTRATION RATE > 60.0 (>56); GLUCOSE, FASTING 317 MG/DL (60-100); POTASSIUM SERUM 4.7 MMOL/L (3.5-5.1); SODIUM LEVEL 135 MMOL/L (136-145); TOTAL PROTEIN 6.3 G/DL (5.7-8.2)
[2023-12-07] VITALS: BP 145/70; TEMP 97.7; O2SAT 93
[2023-12-07 04:00] VITALS: BP 139/72; TEMP 97.2; O2SAT 94
[2023-12-07 07:57] VITALS: BP 168/72; TEMP 97.5; O2SAT 95
[2023-12-07 12:00] VITALS: BP 153/68; TEMP 97.2; O2SAT 96
[2023-12-07 16:00] VITALS: BP 150/70; TEMP 97.2; O2SAT 95
[2023-12-07 20:00] VITALS: BP 150/69; TEMP 97.7; O2SAT 94
[2023-12-07] MEDS: FUROSEMIDE 40MG/4ML VIAL IV SCH (20:29)
[2023-12-08 00:05] VITALS: BP 138/69; TEMP 97.7; O2SAT 95
[2023-12-08 03:49] VITALS: BP 139/67; TEMP 97.7; O2SAT 95
[2023-12-08 06:31] LABS: HEMOGLOBIN 11.1 g/dl (13.5-17.5); MEAN CORPUSCULAR HEMOGLOBIN 31.1 pg (27.0-33.0); MEAN CORPUSCULAR HGB CONC 35.8 g/dl (32.0-36.5); MEAN CORPUSCULAR VOLUME 86.8 fl (80.0-96.0); PLATELET COUNT, AUTOMATED 260 10^3/uL (150-450); RED BLOOD COUNT 3.57 10^6/uL (4.30-6.10); WHITE BLOOD COUNT 7.5 10^3/uL (4.0-10.0)
[2023-12-08 07:02] LABS: ALBUMIN 2.9 G/DL (3.2-5.2); ALKALINE PHOSPHATASE 444 U/L (46-116); ALT/SGPT 165 U/L (7.0-40); AST/SGOT 112 U/L (<34); BLOOD UREA NITROGEN 25 MG/DL (9-23); CALCIUM LEVEL 9.3 MG/DL (8.5-10.1); CARBON DIOXIDE LEVEL 32 MMOL/L (20-31); CHLORIDE LEVEL 102 MMOL/L (98-107); GLOMERULAR FILTRATION RATE > 60.0 (>56); GLUCOSE, FASTING 252 MG/DL (60-100); POTASSIUM SERUM 3.9 MMOL/L (3.5-5.1); SODIUM LEVEL 134 MMOL/L (136-145); TOTAL PROTEIN 5.9 G/DL (5.7-8.2)
[2023-12-08 08:12] VITALS: BP 139/67; TEMP 97.5; O2SAT 91
[2023-12-08 08:16] VITALS: BP 139/67
[2023-12-08] MEDS ORDERED: oxyCODONE 5MG TAB PO PRN ×2 (10:10)
[2023-12-08] MEDS ORDERED: SIME80TA16 PO (10:18)
[2023-12-08] MEDS ORDERED: OXYC20TA40 PO (10:18)
[2023-12-08] MEDS ORDERED: POLY2.5S OS (10:18)
[2023-12-08] MEDS ORDERED: IPRA0.00 NEB ×2 (10:18)
[2023-12-08] MEDS ORDERED: SENO8.6T5 PO (10:18)
[2023-12-08] MEDS ORDERED: OXYC-517 PO (10:18)
[2023-12-08] MEDS ORDERED: MOM30SS2 PO (10:18)
[2023-12-08] MEDS ORDERED: LACT20EL PO (10:18)
[2023-12-08] MEDS ORDERED: LOVE1INJ SC (10:18)
[2023-12-08] MEDS ORDERED: COLA100C5 PO (10:18)
[2023-12-08] MEDS ORDERED: BISA10SU PR (10:18)
[2023-12-08] MEDS ORDERED: IBUP-1022 PO (10:18)
[2023-12-08] MEDS: NS 1,000 ML IV SCH (10:26)
[2023-12-08] MEDS ORDERED: PERMETHRIN 5% CREAM 60 GM TOP ONE (11:00)
[2023-12-08] MEDS ORDERED: oxyCODONE 20MG CR TAB PO SCH (21:00)
== END 2023-12-08 14:40 | DRG 930 ==
LOC: M ED 10:20 → M ED INP 12:18 → M PCU 15:13 → M MSPAV 12-06 10:08
PROVIDERS: ADMIT Surgery; ATTEND Internal Medicine
DX: S22.5XXA Flail chest, initial encounter for closed fracture (principal); J96.01 Acute respiratory failure with hypoxia; J90 Pleural effusion, not elsewhere classified; J94.2 Hemothorax; S27.329A Contusion of lung, unspecified, initial encounter; S32.401A Unspecified fracture of right acetabulum, initial encounter for closed fracture; S32.501A Unspecified fracture of right pubis, initial encounter for closed fracture; E10.9 Type 1 diabetes mellitus without complications; H04.129 Dry eye syndrome of unspecified lacrimal gland; I10 Essential (primary) hypertension; I49.3 Ventricular premature depolarization; J98.11 Atelectasis; R33.9 Retention of urine, unspecified; K59.00 Constipation, unspecified; J98.19 Other pulmonary collapse; H10.32 Unspecified acute conjunctivitis, left eye; Z79.899 Other long term (current) drug therapy; G43.909 Migraine, unspecified, not intractable, without status migrainosus; F17.220 Nicotine dependence, chewing tobacco, uncomplicated; Z79.4 Long term (current) use of insulin; W17.89XA Other fall from one level to another, initial encounter; Y92.009 Unspecified place in unspecified non-institutional (private) residence as the place of occurrence of the external cause

== ENCOUNTER 2023-12-08 11:02 | Inpatient (IN) | payer OTHER ==
[~2023-12-08] VITALS: Ht 188 cm; Wt 108.7 kg
[~2023-12-08 11:02] MED LIST changes: +BISA10SU PR; +COLA100C5 PO; +IBUP-1022 PO; +IPRA0.00 NEB; +LACT20EL PO; +LOVE1INJ SC; +MAGN400T35 PO; +MOM30SS2 PO; +OXYC-517 PO; +OXYC20TA40 PO; +POLY2.5S OS; +SENO8.6T5 PO; +SIME80TA16 PO; +SUMA50TA2 PO
[2023-12-08] MEDS ORDERED: FLEET ENEMA PR PRN (14:35)
[2023-12-08] MEDS ORDERED: BISACODYL 10MG SUPP PR PRN (14:35)
[2023-12-08] MEDS ORDERED: MAALOX 30 ML SUSP *UDC PO PRN (14:35)
[2023-12-08] MEDS ORDERED: BISACODYL 5MG TAB PO PRN (14:35)
[2023-12-08] MEDS ORDERED: ONDANSETRON 4MG TAB PO PRN (14:35)
[2023-12-08] MEDS ORDERED: IPRATROPIUM 0.5MG/ALBUTEROL 2.5MG INH SOL UD 3ML (DUONEB) NEB PRN (15:05)
[2023-12-08] MEDS ORDERED: SUMAtriptan SUCCINATE 25 MG TAB PO PRN (15:05)
[2023-12-08 15:15] VITALS: BP 153/65; TEMP 97.4; O2SAT 96
[2023-12-08] MEDS ORDERED: GLUCAGON INJ 1MG VIAL SC PRN (15:35)
[2023-12-08] MEDS ORDERED: DEXTROSE 50% 50ML SYRINGE IV PRN (15:35)
[2023-12-08] MEDS ORDERED: GLUCOSE 4 GM CHEW PO PRN (15:35)
[2023-12-08] MEDS: IPRATROPIUM 0.5MG/ALBUTEROL 2.5MG INH SOL UD 3ML (DUONEB) NEB SCH (15:47)
[2023-12-08] MEDS: TETRAHYDROZOLINE OPHTH 0.05% 15 ML BTL OU SCH (16:00)
[2023-12-08] MEDS: SIMETHICONE 80MG CHEW TAB PO SCH (16:59)
[2023-12-08] MEDS: LACTULOSE 20GM/30ML SYRUP UDC PO SCH (16:59)
[2023-12-08] MEDS: POLYTRIM OPTH DROPS 10ML OS SCH (17:00)
[2023-12-08] MEDS: IBUPROFEN 600MG TAB PO SCH (17:00)
[2023-12-08] MEDS: NS 1,000 ML IV SCH (17:00)
[2023-12-08] MEDS: DOCUSATE SODIUM 100MG CAPSULE PO SCH (19:36)
[2023-12-08] MEDS: PERMETHRIN 5% CREAM 60 GM TOP ONE (19:36)
[2023-12-08] MEDS: MAGNESIUM OXIDE 400MG TAB (MAG-OX) PO SCH (19:37)
[2023-12-08] MEDS: oxyCODONE 20MG CR TAB PO SCH (19:37)
[2023-12-08] MEDS: CARVedilol 12.5 MG TAB PO SCH (19:38)
[2023-12-08] MEDS: SENOKOT S TAB PO SCH (19:38)
[2023-12-08] MEDS: FAMOTIDINE 20 MG TAB PO SCH (19:39)
[2023-12-08 20:00] VITALS: BP 120/57; TEMP 97.8; O2SAT 95
[2023-12-09 04:00] VITALS: BP 134/63; TEMP 97.5; O2SAT 95
[2023-12-09] MEDS: oxyCODONE 5MG TAB PO PRN (06:18)
[2023-12-09 08:20] LABS: BASO # 0.1 10^3/uL (0.0-0.2); BASO % 0.5 % (0.0-1.0); EOS # 0.2 10^3/uL (0.0-0.5); EOS % 1.9 % (0.0-3.0); HEMATOCRIT 31.6 % (42.0-52.0); HEMOGLOBIN 11.4 g/dl (13.5-17.5); LYMPH # 0.8 10^3/uL (1.5-5.0); LYMPH % 7.6 % (24.0-44.0); MEAN CORPUSCULAR HEMOGLOBIN 31.2 pg (27.0-33.0); MEAN CORPUSCULAR HGB CONC 36.1 g/dl (32.0-36.5); MEAN CORPUSCULAR VOLUME 86.6 fl (80.0-96.0); MONO # 0.4 10^3/uL (0.0-0.8); MONO % 3.9 % (2.0-8.0); NEUTROPHILS # 9.3 10^3/uL (1.5-8.5); NEUTROPHILS % 85.6 % (36.0-66.0); PLATELET COUNT, AUTOMATED 277 10^3/uL (150-450); RED BLOOD COUNT 3.65 10^6/uL (4.30-6.10); WHITE BLOOD COUNT 10.8 10^3/uL (4.0-10.0)
[2023-12-09 09:06] LABS: ALKALINE PHOSPHATASE 489 U/L (46-116); ALT/SGPT 137 U/L (7.0-40); AST/SGOT 51 U/L (<34); BILIRUBIN,TOTAL 1.3 MG/DL (0.3-1.2); BLOOD UREA NITROGEN 23 MG/DL (9-23); CALCIUM LEVEL 6.4 MG/DL (8.5-10.1); CARBON DIOXIDE LEVEL 29 MMOL/L (20-31); CHLORIDE LEVEL 100 MMOL/L (98-107); CREATININE FOR GFR <0.15 MG/DL (0.70-1.30); GLOMERULAR FILTRATION RATE > 60.0 (>56); GLUCOSE, FASTING 368 MG/DL (60-100); POTASSIUM SERUM 4.3 MMOL/L (3.5-5.1); SODIUM LEVEL 134 MMOL/L (136-145); TOTAL PROTEIN 10.9 G/DL (5.7-8.2)
[2023-12-09] MEDS: PANTOPRAZOLE 40MG TAB (PROTONIX) PO SCH (09:22)
[2023-12-09] MEDS: ENOXAPARIN 40MG/0.4ML SYRINGE (J1650 PER 10MG) SC SCH (09:22)
[2023-12-09 12:00] VITALS: BP 136/62; TEMP 97.9; O2SAT 92
[2023-12-09] MEDS: CALCIUM GLUCONATE 1,000 MG in D5W MINI-BAG PLUS 100 ML IV ONE (12:28)
[2023-12-09] MEDS ORDERED: COMBIVENT RESPIMAT 100-20MCG INHALER 4GM INH PRN (19:40)
[2023-12-09 19:58] VITALS: BP 156/70; TEMP 98; O2SAT 94
[2023-12-09] MEDS: SENNA 8.6 MG TAB (SENOKOT) PO SCH (21:00)
[2023-12-10 04:00] VITALS: BP 136/65; TEMP 97.9; O2SAT 91
[2023-12-10 06:57] LABS: HEMATOCRIT 28.8 % (42.0-52.0); HEMOGLOBIN 10.3 g/dl (13.5-17.5); MEAN CORPUSCULAR HEMOGLOBIN 31.2 pg (27.0-33.0); MEAN CORPUSCULAR HGB CONC 35.8 g/dl (32.0-36.5); MEAN CORPUSCULAR VOLUME 87.3 fl (80.0-96.0); PLATELET COUNT, AUTOMATED 243 10^3/uL (150-450); WHITE BLOOD COUNT 5.7 10^3/uL (4.0-10.0)
[2023-12-10 07:34] LABS: ALBUMIN 2.6 G/DL (3.2-5.2); ALKALINE PHOSPHATASE 386 U/L (46-116); ALT/SGPT 88 U/L (7.0-40); AST/SGOT 22 U/L (<34); BILIRUBIN,TOTAL 1.3 MG/DL (0.3-1.2); BLOOD UREA NITROGEN 18 MG/DL (9-23); CALCIUM LEVEL 8.3 MG/DL (8.5-10.1); CARBON DIOXIDE LEVEL 31 MMOL/L (20-31); CHLORIDE LEVEL 104 MMOL/L (98-107); CREATININE FOR GFR 0.74 MG/DL (0.70-1.30); GLOMERULAR FILTRATION RATE > 60.0 (>56); GLUCOSE, FASTING 100 MG/DL (60-100); POTASSIUM SERUM 3.6 MMOL/L (3.5-5.1); SODIUM LEVEL 139 MMOL/L (136-145); TOTAL PROTEIN 5.3 G/DL (5.7-8.2)
[2023-12-10] MEDS: FUROSEMIDE 40MG/4ML VIAL IV SCH (09:35)
[2023-12-10 12:00] VITALS: BP 131/69; TEMP 97.9; O2SAT 96
[2023-12-10 20:00] VITALS: BP 166/77; TEMP 97.7; O2SAT 96
[2023-12-11 04:00] VITALS: BP 135/62; TEMP 98.2; O2SAT 93
[2023-12-11 07:32] LABS: ALBUMIN 2.6 G/DL (3.2-5.2); ALKALINE PHOSPHATASE 360 U/L (46-116); ALT/SGPT 70 U/L (7.0-40); AST/SGOT 21 U/L (<34); BILIRUBIN,TOTAL 1.1 MG/DL (0.3-1.2); BLOOD UREA NITROGEN 16 MG/DL (9-23); CALCIUM LEVEL 8.4 MG/DL (8.5-10.1); CARBON DIOXIDE LEVEL 31 MMOL/L (20-31); CHLORIDE LEVEL 103 MMOL/L (98-107); GLOMERULAR FILTRATION RATE > 60.0 (>56); GLUCOSE, FASTING 121 MG/DL (60-100); POTASSIUM SERUM 4.1 MMOL/L (3.5-5.1); SODIUM LEVEL 138 MMOL/L (136-145); TOTAL PROTEIN 5.3 G/DL (5.7-8.2)
[2023-12-11 09:14] LABS: HEMATOCRIT 33.7 % (42.0-52.0); HEMOGLOBIN 12.2 g/dl (13.5-17.5); MEAN CORPUSCULAR HEMOGLOBIN 31.6 pg (27.0-33.0); MEAN CORPUSCULAR HGB CONC 36.2 g/dl (32.0-36.5); MEAN CORPUSCULAR VOLUME 87.3 fl (80.0-96.0); PLATELET COUNT, AUTOMATED 292 10^3/uL (150-450); RED BLOOD COUNT 3.86 10^6/uL (4.30-6.10); WHITE BLOOD COUNT 6.7 10^3/uL (4.0-10.0)
[2023-12-11] MEDS: FUROSEMIDE 20MG/2ML VIAL IV SCH (09:35)
[2023-12-11 12:00] VITALS: BP 132/68; TEMP 98; O2SAT 95
[2023-12-11 20:00] VITALS: BP 140/66; TEMP 98.2; O2SAT 94
[2023-12-12 04:00] VITALS: BP 118/58; TEMP 97.9; O2SAT 93
[2023-12-12] MEDS: MOM 30ML SUSPENSION UDC PO PRN (06:45)
[2023-12-12] MEDS: oxyCODONE 5MG TAB PO PRN (06:46)
[2023-12-12] MEDS: FUROSEMIDE 40 MG TAB PO SCH (08:52)
[2023-12-12 10:16] LABS: HEMATOCRIT 32.4 % (42.0-52.0); HEMOGLOBIN 11.4 g/dl (13.5-17.5); MEAN CORPUSCULAR HEMOGLOBIN 30.9 pg (27.0-33.0); MEAN CORPUSCULAR HGB CONC 35.2 g/dl (32.0-36.5); MEAN CORPUSCULAR VOLUME 87.8 fl (80.0-96.0); PLATELET COUNT, AUTOMATED 279 10^3/uL (150-450); RED BLOOD COUNT 3.69 10^6/uL (4.30-6.10); WHITE BLOOD COUNT 5.7 10^3/uL (4.0-10.0)
[2023-12-12 10:47] LABS: ALBUMIN 2.8 G/DL (3.2-5.2); ALKALINE PHOSPHATASE 358 U/L (46-116); ALT/SGPT 62 U/L (7.0-40); AST/SGOT 26 U/L (<34); BILIRUBIN,TOTAL 1.6 MG/DL (0.3-1.2); BLOOD UREA NITROGEN 17 MG/DL (9-23); CALCIUM LEVEL 8.7 MG/DL (8.5-10.1); CARBON DIOXIDE LEVEL 31 MMOL/L (20-31); CHLORIDE LEVEL 104 MMOL/L (98-107); CREATININE FOR GFR 0.77 MG/DL (0.70-1.30); GLOMERULAR FILTRATION RATE > 60.0 (>56); GLUCOSE, FASTING 196 MG/DL (60-100); POTASSIUM SERUM 4.1 MMOL/L (3.5-5.1); SODIUM LEVEL 136 MMOL/L (136-145); TOTAL PROTEIN 5.6 G/DL (5.7-8.2)
[2023-12-12 12:00] VITALS: BP 132/61; TEMP 97; O2SAT 96
[2023-12-12] MEDS ORDERED: NALO25TA PO (15:52)
[2023-12-12] MEDS ORDERED: HOME MED LIST COMPLETE! XX SCH (15:55)
[2023-12-12] MEDS: MOVANTIK 25 MG PO SCH (16:23)
[2023-12-12 19:45] VITALS: BP 151/83; TEMP 97.6; O2SAT 93
[2023-12-13 04:27] VITALS: BP 133/65; TEMP 98; O2SAT 95
[2023-12-13 12:00] VITALS: BP 130/65; TEMP 98; O2SAT 94
[2023-12-13 21:00] VITALS: BP 159/70; TEMP 97.8; O2SAT 93
[2023-12-14 04:20] VITALS: BP 156/67; TEMP 97.7; O2SAT 96
[2023-12-14 12:00] VITALS: BP 145/69; TEMP 97.9; O2SAT 96
[2023-12-14] MEDS ORDERED: OXYC-517 PO (14:10)
[2023-12-14] MEDS ORDERED: OXYC20TA40 PO (14:10)
[2023-12-14] MEDS ORDERED: FURO40TA2 PO (14:10)
[2023-12-14] MEDS ORDERED: FAMO20TA PO (14:10)
[2023-12-14] MEDS ORDERED: IBUP-1022 PO (14:10)
[2023-12-14] MEDS ORDERED: PANT40TA29 PO (14:10)
[2023-12-14] MEDS ORDERED: SENO8.6T5 PO (14:10)
[2023-12-14] MEDS ORDERED: CARV25TA PO (14:10)
[2023-12-14 20:00] VITALS: BP 138/77; TEMP 97.4; O2SAT 96
[2023-12-15 04:00] VITALS: BP 118/62; TEMP 97.9; O2SAT 93
[2023-12-15 08:05] VITALS: BP 118/62
== END 2023-12-15 11:00 | disposition home or self-care (01) | DRG 862 ==
LOC: M PM&R 14:45
PROVIDERS: ADMIT Physical Medicine & Rehabilitation; ATTEND Physical Medicine & Rehabilitation
DX: S22.5XXD Flail chest, subsequent encounter for fracture with routine healing (principal); J90 Pleural effusion, not elsewhere classified; E46 Unspecified protein-calorie malnutrition; E83.51 Hypocalcemia; S27.329D Contusion of lung, unspecified, subsequent encounter; S32.401D Unspecified fracture of right acetabulum, subsequent encounter for fracture with routine healing; E10.9 Type 1 diabetes mellitus without complications; G43.909 Migraine, unspecified, not intractable, without status migrainosus; I10 Essential (primary) hypertension; F17.220 Nicotine dependence, chewing tobacco, uncomplicated; Z79.899 Other long term (current) drug therapy; Z79.4 Long term (current) use of insulin; K59.00 Constipation, unspecified; H04.129 Dry eye syndrome of unspecified lacrimal gland; H10.9 Unspecified conjunctivitis; Z20.822 Contact with and (suspected) exposure to COVID-19; K21.9 Gastro-esophageal reflux disease without esophagitis

== ENCOUNTER → 2023-12-20 | Outpatient (CLI) | payer OTHER ==
[~2023-12-20] MED LIST changes: +FAMO20TA PO; +FURO40TA2 PO; +NALO25TA PO; +PANT40TA29 PO
== END ==
LOC: M SOG 07:26
PROVIDERS: ATTEND Physician Assistant
DX: R10.2 Pelvic and perineal pain (principal); M25.552 Pain in left hip; S32.401A Unspecified fracture of right acetabulum, initial encounter for closed fracture; Y93.9 Activity, unspecified; Y92.9 Unspecified place or not applicable

== ENCOUNTER → 2024-01-12 | Outpatient (CLI) | payer OTHER | LOC: M SOG 09:30 | PROVIDERS: ATTEND Orthopaedic Surgery | DX: R10.2 Pelvic and perineal pain (principal) ==

== ENCOUNTER → 2024-02-28 | Outpatient (CLI) | payer OTHER | LOC: M SOG 07:55 | PROVIDERS: ATTEND Physician Assistant | DX: R10.2 Pelvic and perineal pain (principal) ==

== ENCOUNTER → 2024-03-28 | Outpatient (CLI) | payer OTHER ==
[2024-03-28 17:13] LABS: BLOOD UREA NITROGEN 30 MG/DL (9-23); CALCIUM LEVEL 10.6 MG/DL (8.5-10.1); CARBON DIOXIDE LEVEL 30 MMOL/L (20-31); CHLORIDE LEVEL 98 MMOL/L (98-107); CREATININE FOR GFR 0.76 MG/DL (0.70-1.30); GLOMERULAR FILTRATION RATE > 60.0 (>56); GLUCOSE, FASTING 443 MG/DL (60-100); POTASSIUM SERUM 5.2 MMOL/L (3.5-5.1); SODIUM LEVEL 135 MMOL/L (136-145)
== END ==
LOC: M LAB 12:46
PROVIDERS: ATTEND Internal Medicine Endocrinology, Diabetes & Metabolism
DX: E10.65 Type 1 diabetes mellitus with hyperglycemia (principal)

== ENCOUNTER 2024-05-27 17:17 | Emergency (ER) | payer OTHER ==
[~2024-05-27] VITALS: Ht 182.9 cm; Wt 116.7 kg
[2024-05-27 17:23] VITALS: TEMP 97.3
[2024-05-27] MEDS ORDERED: VALS1TAB66 (17:30)
[2024-05-27 19:23] LABS: VENOUS BASE EXCESS 0.2 (-2.0-2.0); VENOUS HCO3 25.1 MMOL/L (23.0-27.0); VENOUS O2 SATURATION 89.6 % (60.0-80.0); VENOUS PARTIAL PRESSURE CO2 41.9 mmHg (38.0-50.0); VENOUS PARTIAL PRESSURE O2 59.6 mmHg (30.0-50.0); VENOUS PH 7.396 UNITS (7.330-7.430); VENOUS STANDARD HCO3 24.5 MMOL/L; VENOUS TOTAL CO2 26.4 MMOL/L (24.0-28.0)
[2024-05-27 19:32] LABS: BASO % 0.7 % (0.0-1.0); EOS # 0.2 10^3/uL (0.0-0.5); EOS % 3.1 % (0.0-3.0); HEMATOCRIT 37.2 % (42.0-52.0); HEMOGLOBIN 13.7 g/dl (13.5-17.5); LYMPH # 1.6 10^3/uL (1.5-5.0); LYMPH % 27.9 % (24.0-44.0); MEAN CORPUSCULAR HEMOGLOBIN 30.8 pg (27.0-33.0); MEAN CORPUSCULAR VOLUME 83.6 fl (80.0-96.0); MONO # 0.5 10^3/uL (0.0-0.8); MONO % 7.8 % (2.0-8.0); NEUTROPHILS # 3.5 10^3/uL (1.5-8.5); NEUTROPHILS % 60.3 % (36.0-66.0); PLATELET COUNT, AUTOMATED 261 10^3/uL (150-450); RED BLOOD COUNT 4.45 10^6/uL (4.30-6.10); WHITE BLOOD COUNT 5.9 10^3/uL (4.0-10.0)
[2024-05-27 19:35] LABS: MEAN CORPUSCULAR HGB CONC 36.8 g/dl (32.0-36.5)
[2024-05-27 19:42] LABS: APPEARANCE, URINE CLEAR (CLEAR); BACTERIA, URINE AUTO NEGATIVE (NEGATIVE); BILIRUBIN, URINE AUTO NEGATIVE (NEGATIVE); BLOOD, URINE BLOOD NEGATIVE (NEGATIVE); COLOR, URINE YELLOW (YELLOW); GLUCOSE, URINE (UA) AUTO 3+ mg/dL (NEGATIVE); KETONE, URINE AUTO NEGATIVE (NEGATIVE); LEUKOCYTE ESTERASE, URINE AUTO NEGATIVE (NEGATIVE); NITRITE, URINE AUTO NEGATIVE (NEGATIVE); PROTEIN, URINE AUTO 1+ mg/dL (NEGATIVE); RBC, URINE AUTO 2 /HPF (0-3); SPECIFIC GRAVITY URINE AUTO 1.022 (1.002-1.035); SQUAMOUS EPITHELIAL CELL UR AU 0 /HPF (0-6); UROBILINOGEN, URINE AUTO 0.2 mg/dL (0.0-2.0); WBC, URINE AUTO 0 /HPF (0-3)
[2024-05-27 19:58] LABS: LIPASE 17 U/L (12-53)
[2024-05-27 20:10] LABS: HEMOGLOBIN A1c 6.6 % (4.0-6.0)
[2024-05-27 21:31] LABS: OSMOLALITY SERUM 297 MOSM/KG (275-295)
[2024-05-27 21:44] LABS: ACETONE/KETONE 0.14 MMOL/L (0.02-0.27)
[2024-05-27] MEDS: CARVedilol 12.5 MG TAB PO ONE (21:45)
[2024-05-27] MEDS: VALSARTAN 80 MG TAB (DIOVAN) PO ONE (21:46)
[2024-05-27 21:51] LABS: ALBUMIN 3.8 G/DL (3.2-5.2); ALKALINE PHOSPHATASE 143 U/L (40-129); ALT/SGPT 47 U/L (7.0-40); AST/SGOT 24 U/L (<34); BILIRUBIN,DIRECT 0.8 MG/DL (<0.4); BILIRUBIN,TOTAL 2.9 MG/DL (0.3-1.2); BLOOD UREA NITROGEN 18 MG/DL (9-23); CALCIUM LEVEL 9.3 MG/DL (8.5-10.1); CARBON DIOXIDE LEVEL 28 MMOL/L (20-31); CHLORIDE LEVEL 105 MMOL/L (98-107); CREATININE FOR GFR 0.82 MG/DL (0.70-1.30); GLOMERULAR FILTRATION RATE > 60.0 (>56); GLUCOSE, FASTING 180 MG/DL (60-100); POTASSIUM SERUM 3.9 MMOL/L (3.5-5.1); SODIUM LEVEL 143 MMOL/L (136-145); TOTAL PROTEIN 6.6 G/DL (5.7-8.2)
[2024-05-27 22:00] VITALS: BP 150/71; O2SAT 96
== END 2024-05-27 22:16 | disposition home or self-care (01) ==
LOC: M ED 17:17
DX: I10 Essential (primary) hypertension (principal); R74.01 Elevation of levels of liver transaminase levels; E11.9 Type 2 diabetes mellitus without complications; K21.9 Gastro-esophageal reflux disease without esophagitis; Z79.4 Long term (current) use of insulin; Z79.899 Other long term (current) drug therapy

== ENCOUNTER → 2024-05-29 | Outpatient (CLI) | payer OTHER ==
[~2024-05-29] MED LIST changes: +VALS1TAB66
== END ==
LOC: M SOG 07:48
PROVIDERS: ATTEND Physician Assistant
DX: R10.2 Pelvic and perineal pain (principal)

== ENCOUNTER → 2024-06-26 | Outpatient (CLI) | payer OTHER | LOC: M SOG 07:49 | PROVIDERS: ATTEND Physician Assistant | DX: R10.2 Pelvic and perineal pain (principal); S32.591D Other specified fracture of right pubis, subsequent encounter for fracture with routine healing; S32.431D Displaced fracture of anterior column [iliopubic] of right acetabulum, subsequent encounter for fracture with routine healing ==

== ENCOUNTER → 2024-07-23 | Outpatient (CLI) | payer OTHER | LOC: M WUC 10:45 | PROVIDERS: ATTEND Nurse Practitioner Adult Health | DX: S22.42XA Multiple fractures of ribs, left side, initial encounter for closed fracture (principal); X58.XXXA Exposure to other specified factors, initial encounter; Y92.9 Unspecified place or not applicable ==

== ENCOUNTER → 2024-09-25 | Outpatient (CLI) | payer OTHER | LOC: M SOG 07:08 | PROVIDERS: ATTEND Orthopaedic Surgery | DX: R10.2 Pelvic and perineal pain (principal) ==